=== PATIENT | male | born 1940 | race Two or more races ===

== ENCOUNTER 2023-05-24 11:27 | Inpatient (IN) | payer OTHER ==
[~2023-05-24] VITALS: Ht 231.1 cm; Wt 59.0 kg
[2023-05-24] MEDS ORDERED: RIVASTIGMINE1.5 MG (11:45)
[2023-05-24] MEDS ORDERED: AZOR 10-20 MG1 EACH (11:45)
[2023-05-24] MEDS ORDERED: PROTONIX20 MG (11:45)
[2023-05-24] MEDS ORDERED: BENICAR40 MG (11:45)
[2023-05-24] MEDS ORDERED: TAMS0.4C (11:46)
[2023-05-24] MEDS ORDERED: GABAPENTIN400 MG (11:46)
[2023-05-24 13:05] LABS: HEMATOCRIT 27.5 % (39.0-48.0); HEMOGLOBIN 9.3 g/dL (13-16.00); MEAN CELL VOLUME 92.9 fL (80.0-100.00); MEAN CORPUSCULAR HEMOGLOBIN 31.3 pg (27.00-32.0); MEAN CORPUSCULAR HGB CONC 33.7 g/dl (32.0-36.0); PLATELET COUNT 318 K/uL (150-450); RED BLOOD COUNT 2.96 M/uL (4.00-6.00); RED CELL DISTRIBUTION WIDTH 14.6 % (11.5-14.5)
[2023-05-24 13:37] LABS: CALCIUM 9.6 mg/dL (8.5-10.1); CREATININE SERUM 3.11 mg/dL (0.70-1.30); GFR 19.31; POTASSIUM 5.81 mEq/L (3.5-5.1)
[2023-05-24 20:19] LABS: PH,URINE 6.5 (5.0-8.0); URINE APPEARANCE Clear; URINE BILIRRUBIN Negative (NEGATIVE); URINE BLOOD Negative; URINE COLOR Yellow; URINE GLUCOSE Negative (NEGATIVE); URINE LEUKOCYTE Negative; URINE NITRATE Negative; URINE UROBILINOGEN 0.2 E.U./dl
[2023-05-24 20:23] LABS: URINE BACTERIA 17.6 uL (0.0-1933); URINE EPITHELIAL CELLS 5.7 uL (0.0-38.8); URINE WBC 7.5 uL (0.0-23.2)
[2023-05-24 20:25] LABS: URINE PROTEIN 100 (NEGATIVE)
[2023-05-25 05:15] LABS: MEAN CELL VOLUME 92.7 fL (80.0-100.00); MEAN CORPUSCULAR HGB CONC 34.6 g/dl (32.0-36.0); PLATELET COUNT 304 K/uL (150-450); RED BLOOD COUNT 2.59 M/uL (4.00-6.00); RED CELL DISTRIBUTION WIDTH 14.3 % (11.5-14.5)
[2023-05-25 05:49] LABS: ALBUMIN 3.2 gm/dL (3.4-5.0); CREATININE SERUM 2.51 mg/dL (0.70-1.30); GFR 24.73; POTASSIUM 4.84 mEq/L (3.5-5.1)
[2023-05-25 05:52] LABS: ALBUMIN 3.1 gm/dL (3.4-5.0); BILIRUBIN TOTAL 0.26 mg/dL (0.3-1.2); CALCIUM 9.1 mg/dL (8.5-10.1); CREATININE SERUM 2.52 mg/dL (0.70-1.30); GFR 24.62; GLOBULINA 3.1 G/DL (2.4-3.5); MAGNESIUM 2.2 mg/dL (1.8-2.4); POTASSIUM 4.86 mEq/L (3.5-5.1); TOTAL PROTEIN 6.2 gm/dL (6.4-8.2)
[2023-05-25 07:51] LABS: HEMOGLOBIN 8.3 g/dL (13-16.00)
[2023-05-25 16:13] LABS: ob NEGATIVE (NEGATIVE)
[2023-05-26 14:53] LABS: PLATELET ESTIMATE NORMAL (NORMAL)
[2023-05-27 05:10] LABS: HEMATOCRIT 24.6 % (39.0-48.0); MEAN CELL VOLUME 91.8 fL (80.0-100.00); MEAN CORPUSCULAR HGB CONC 34.7 g/dl (32.0-36.0); PLATELET COUNT 272 K/uL (150-450); RED BLOOD COUNT 2.68 M/uL (4.00-6.00); RED CELL DISTRIBUTION WIDTH 14.8 % (11.5-14.5)
[2023-05-27 05:13] LABS: HEMOGLOBIN 8.5 g/dL (13-16.00); MEAN CORPUSCULAR HEMOGLOBIN 31.7 pg (27.00-32.0)
[2023-05-27 05:22] LABS: CALCIUM 8.8 mg/dL (8.5-10.1); CREATININE SERUM 1.9 mg/dL (0.70-1.30); GFR 34.11; POTASSIUM 4.57 mEq/L (3.5-5.1)
[2023-05-27 07:29] LABS: URINE PROT QUANT 24HR 117.6 MG/DL
[2023-05-27 07:34] LABS: CREATINE CLEARANCE 27.1 ML/MIN (97-137); CREATININE SERUM 2.25 mg/dL (0.8-1.3)
[2023-05-27] MEDS ORDERED: TAMS0.4C PO (18:41)
[2023-05-27] MEDS ORDERED: RIVASTIGMINE1.5 MG PO (18:41)
[2023-05-27] MEDS ORDERED: AMLODIPINE BESYL5 MG PO (18:42)
[2023-05-27] MEDS ORDERED: BENICAR40 MG PO (18:44)
[2023-05-27] MEDS ORDERED: FAMOTIDINE20 MG PO (18:45)
[2023-05-27] MEDS ORDERED: GABAPENTIN400 MG PO (18:45)
== END 2023-05-27 19:39 | disposition home or self-care (01) | DRG 684 ==
LOC: ER 11:28 → MEDI 19:52
PROVIDERS: Emergency Medicine; Specialist/Technologist, Other Nephrology; ADMIT Internal Medicine Hematology & Oncology; ATTEND Internal Medicine Hematology & Oncology
PROC: BW28ZZZ Computerized Tomography (CT Scan) of Head (ICD-10-PCS; principal; 2023-05-24)
PROC: BT4JZZZ Ultrasonography of Kidneys and Bladder (ICD-10-PCS; 2023-05-25)
DX: N17.8 Other acute kidney failure (principal); D63.1 Anemia in chronic kidney disease; I12.9 Hypertensive chronic kidney disease with stage 1 through stage 4 chronic kidney disease, or unspecified chronic kidney disease; N18.30 Chronic kidney disease, stage 3 unspecified; E87.5 Hyperkalemia; G30.9 Alzheimer's disease, unspecified; N28.1 Cyst of kidney, acquired; F02.80 Dementia in other diseases classified elsewhere, unspecified severity, without behavioral disturbance, psychotic disturbance, mood disturbance, and anxiety

== ENCOUNTER → 2023-07-02 | Outpatient (CLI) | payer OTHER ==
[~2023-07-02] MED LIST: AMLODIPINE BESYL5 MG PO; AZOR 10-20 MG1 EACH; BENICAR40 MG; BENICAR40 MG PO; FAMOTIDINE20 MG PO; GABAPENTIN400 MG; GABAPENTIN400 MG PO; PROTONIX20 MG; RIVASTIGMINE1.5 MG; RIVASTIGMINE1.5 MG PO; TAMS0.4C; TAMS0.4C PO
== END | disposition home or self-care (01) ==
LOC: RAD 15:28
PROVIDERS: ATTEND Internal Medicine Hematology & Oncology
DX: J20.9 Acute bronchitis, unspecified (principal)

== ENCOUNTER 2023-07-12 16:57 | Inpatient (IN) | payer OTHER ==
[~2023-07-12] VITALS: Ht 17.8 cm; Wt 47.6 kg
[2023-07-12] MEDS ORDERED: LOKELMA10 GM PO (17:10)
[2023-07-12 20:35] LABS: HEMATOCRIT 29.7 % (39.0-48.0); HEMOGLOBIN 9.8 g/dL (13-16.00); MEAN CELL VOLUME 91.9 fL (80.0-100.00); MEAN CORPUSCULAR HEMOGLOBIN 30.2 pg (27.00-32.0); MEAN CORPUSCULAR HGB CONC 32.9 g/dl (32.0-36.0); PLATELET COUNT 291 K/uL (150-450); RED BLOOD COUNT 3.23 M/uL (4.00-6.00); RED CELL DISTRIBUTION WIDTH 17.5 % (11.5-14.5)
[2023-07-12 20:58] LABS: ALBUMIN 3.5 gm/dL (3.4-5.0); BILIRUBIN TOTAL 0.3 mg/dL (0.3-1.2); CALCIUM 9.1 mg/dL (8.5-10.1); GFR 6.66; GLOBULINA 3.8 G/DL (2.4-3.5); POTASSIUM 5.28 mEq/L (3.5-5.1); TOTAL PROTEIN 7.3 gm/dL (6.4-8.2)
[2023-07-12 21:12] LABS: CREATININE SERUM 7.82 mg/dL (0.70-1.30)
[2023-07-12] MEDS ORDERED: SODIUM BICARBONATE 50 MEQ in SODIUM CHLORIDE 0.45 % 1,000 ML IV ONE (22:15)
[2023-07-12] MEDS ORDERED: ONDANSETRON HCL 4 MG in 0.9 % SODIUM CHLORIDE 50 ML IV PRN (22:15)
[2023-07-12] MEDS ORDERED: SODIUM POLYSTYRENE SULFONATE 15 G/4 TSP TSP PO SCH (22:17)
[2023-07-12] MEDS ORDERED: ACETAMINOPHEN 500 MG GEL..CAP PO PRN (22:30)
[2023-07-12] MEDS ORDERED: hydrALAZINE HCL 25 MG TABLET PO PRN (22:30)
[2023-07-13 01:06] LABS: INR 0.99; PARTIAL THROMBOPLASTIN TIME 31.3 SECONDS (22.0-34.0); PROTHROMBIN TIME 10.4 SECONDS (9.0-11.5)
[2023-07-13 01:09] LABS: MAGNESIUM 3.1 mg/dL (1.8-2.4); PHOSPHOROUS 5.8 mg/dL (2.5-4.9)
[2023-07-13 02:18] LABS: PH,URINE 5.5 (5.0-8.0); URINE APPEARANCE Clear; URINE BILIRRUBIN Negative (NEGATIVE); URINE BLOOD NHT; URINE COLOR Yellow; URINE GLUCOSE Negative (NEGATIVE); URINE LEUKOCYTE Trace; URINE NITRATE Negative; URINE UROBILINOGEN 0.2 E.U./dl
[2023-07-13 02:22] LABS: URINE BACTERIA 99.5 uL (0.0-1933); URINE EPITHELIAL CELLS 9.2 uL (0.0-38.8); URINE RBC 25.1 uL (0.0-20.8); URINE WBC 25.1 uL (0.0-23.2)
[2023-07-13 03:40] LABS: URINE PROTEIN 100 (NEGATIVE)
[2023-07-13 06:19] LABS: ABG PO2 113.1 mmHg (80-100); BASE EXCESS -5.7 mmol/l; BICARBONATE 17.6 mmol/l (23-25); SaO2 98.3 %; Tco2 18.5 mmol/l
[2023-07-13 06:20] LABS: allen test SATISFACTORY; o2 21 %; puncture site RADIAL LEFT
[2023-07-13] MEDS ORDERED: AMLODIPINE BESYLATE 10 MG TABLET PO SCH (09:00)
[2023-07-13] MEDS ORDERED: CITRIC ACID/SODIUM CITRATE 30 ML BLIST.PACK PO SCH (09:00)
[2023-07-13] MEDS ORDERED: MEMANTINE HCL 10 MG TABLET PO SCH (09:00)
[2023-07-13] MEDS ORDERED: FAMOTIDINE/PF 20 MG in 0.9 % SODIUM CHLORIDE 8 ML IV PUSH SCH (09:00)
[2023-07-13] MEDS ORDERED: 0.9 % SODIUM CHLORIDE 1,000 ML IV SCH (09:00)
[2023-07-13] MEDS ORDERED: ENOXAPARIN SODIUM 30 MG/0.3 ML SYRINGE SUBCUTANEO SCH (09:00)
[2023-07-14] MEDS ORDERED: SOD FERRIC GLUC COMPLX/SUCROSE 125 MG in 0.9 % SODIUM CHLORIDE 100 ML IV SCH (19:08)
[2023-07-15 07:25] LABS: HEMATOCRIT 24.9 % (39.0-48.0); MEAN CELL VOLUME 91.1 fL (80.0-100.00); PLATELET COUNT 232 K/uL (150-450); RED BLOOD COUNT 2.74 M/uL (4.00-6.00); RED CELL DISTRIBUTION WIDTH 18.1 % (11.5-14.5)
[2023-07-15 07:28] LABS: HEMOGLOBIN 8.5 g/dL (13-16.00)
[2023-07-15] MEDS ORDERED: EPOETIN ALFA-EPBX 10,000 UNIT/ML VIAL (Retacrit) SUBCUTANEO SCH (09:00)
[2023-07-15] MEDS ORDERED: HEPARIN SODIUM,PORCINE 1,000 UNITS/ML VIAL IV SCH (12:15)
[2023-07-15] MEDS ORDERED: HEPARIN SODIUM,PORCINE 1,000 UNITS/ML VIAL SPEPROC ONE (12:15)
[2023-07-15] MEDS ORDERED: EPOETIN ALFA-EPBX 10,000 UNIT/ML 2ML VIAL SUBCUTANEO SCH (17:00)
[2023-07-18 08:41] LABS: GFR 10.74; POTASSIUM 3.83 mEq/L (3.5-5.1)
[2023-07-18 09:10] LABS: CREATININE SERUM 5.17 mg/dL (0.70-1.30)
[2023-07-18 09:12] LABS: MEAN CELL VOLUME 89.8 fL (80.0-100.00); MEAN CORPUSCULAR HGB CONC 34.2 g/dl (32.0-36.0); PLATELET COUNT 222 K/uL (150-450); RED BLOOD COUNT 2.78 M/uL (4.00-6.00)
[2023-07-18 09:24] LABS: HEMOGLOBIN 8.5 g/dL (13-16.00); MEAN CORPUSCULAR HEMOGLOBIN 30.5 pg (27.00-32.0)
[2023-07-20] MEDS ORDERED: HEPARIN SODIUM,PORCINE 0.5 UNITS/ML SYRINGE IJ ONE (21:30)
[2023-07-23 06:53] LABS: HEMATOCRIT 24.9 % (39.0-48.0); MEAN CELL VOLUME 90.9 fL (80.0-100.00); MEAN CORPUSCULAR HGB CONC 33.4 g/dl (32.0-36.0); PLATELET COUNT 251 K/uL (150-450); RED BLOOD COUNT 2.74 M/uL (4.00-6.00); RED CELL DISTRIBUTION WIDTH 18.2 % (11.5-14.5)
[2023-07-23 07:02] LABS: CALCIUM 7.8 mg/dL (8.5-10.1); GFR 7.69; POTASSIUM 4.08 mEq/L (3.5-5.1)
[2023-07-23 07:25] LABS: CREATININE SERUM 6.91 mg/dL (0.70-1.30)
[2023-07-23 08:07] LABS: MEAN CORPUSCULAR HEMOGLOBIN 30.2 pg (27.00-32.0)
[2023-07-23 08:08] LABS: HEMOGLOBIN 8.3 g/dL (13-16.00)
[2023-07-26] MEDS ORDERED: HYDRALAZINE HCL25 MG PO (18:14)
[2023-07-26] MEDS ORDERED: BENICAR40 MG PO (18:14)
[2023-07-26] MEDS ORDERED: AMLODIPINE BESYL5 MG PO (18:14)
[2023-07-26] MEDS ORDERED: FAMOTIDINE20 MG PO (18:15)
[2023-07-26] MEDS ORDERED: NAMENDA10 MG PO (18:15)
[2023-07-26] MEDS ORDERED: PROTONIX20 MG PO (18:16)
== END 2023-07-26 20:17 | disposition home or self-care (01) | DRG 674 ==
LOC: ER 16:58 → MEDJ 22:22 → SEC-K 22:22 → MEDJ 07-13 01:04 → SEC-K 07-13 01:55 → MEDJ 07-13 16:51
PROVIDERS: Emergency Medicine; General Practice; Radiology Vascular & Interventional Radiology; ADMIT Internal Medicine Hematology & Oncology; ATTEND Internal Medicine Hematology & Oncology
PROC: B020ZZZ Computerized Tomography (CT Scan) of Brain (ICD-10-PCS; 2023-07-12)
PROC: BT43ZZZ Ultrasonography of Bilateral Kidneys (ICD-10-PCS; 2023-07-12)
PROC: 05HM33Z Insertion of Infusion Device into Right Internal Jugular Vein, Percutaneous Approach (ICD-10-PCS; 2023-07-15)
PROC: B543ZZA Ultrasonography of Right Jugular Veins, Guidance (ICD-10-PCS; 2023-07-15)
PROC: 5A1D70Z Performance of Urinary Filtration, Intermittent, Less than 6 Hours Per Day (ICD-10-PCS; 2023-07-16)
PROC: 5A1D70Z Performance of Urinary Filtration, Intermittent, Less than 6 Hours Per Day (ICD-10-PCS; 2023-07-19)
PROC: 02PA33Z Removal of Infusion Device from Heart, Percutaneous Approach (ICD-10-PCS; 2023-07-20)
PROC: 0JH63XZ Insertion of Tunneled Vascular Access Device into Chest Subcutaneous Tissue and Fascia, Percutaneous Approach (ICD-10-PCS; principal; 2023-07-20 18:00)
PROC: 5A1D70Z Performance of Urinary Filtration, Intermittent, Less than 6 Hours Per Day (ICD-10-PCS; 2023-07-21)
PROC: 5A1D70Z Performance of Urinary Filtration, Intermittent, Less than 6 Hours Per Day (ICD-10-PCS; 2023-07-23)
DX: N17.9 Acute kidney failure, unspecified (principal); E87.21 Acute metabolic acidosis; I12.0 Hypertensive chronic kidney disease with stage 5 chronic kidney disease or end stage renal disease; Z68.1 Body mass index [BMI] 19.9 or less, adult; N18.6 End stage renal disease; E87.5 Hyperkalemia; D63.1 Anemia in chronic kidney disease; M89.8X9 Other specified disorders of bone, unspecified site; R63.0 Anorexia; Z99.2 Dependence on renal dialysis; Z53.1 Procedure and treatment not carried out because of patient's decision for reasons of belief and group pressure; Z74.01 Bed confinement status